=== PATIENT | male | born 1990 | race Caucasian/White ===

== ENCOUNTER 2021-08-23 12:27 | Emergency (ER) | payer OTHER, SELFPAY | END 2021-08-23 15:13 | disposition home or self-care (01) | LOC: ERS 12:27 | DX: S09.90XA Unspecified injury of head, initial encounter (principal); F17.210 Nicotine dependence, cigarettes, uncomplicated; V48.9XXA Unspecified car occupant injured in noncollision transport accident in traffic accident, initial encounter | CPT/HCPCS: 70450; G0390 ==

== ENCOUNTER 2022-10-16 14:39 | Emergency (ER) | payer OTHER ==
[2022-10-16] MEDS ORDERED: Diazepam 5 MG TAB ONE (16:09)
== END 2022-10-16 16:23 | disposition left against medical advice (07) ==
LOC: ERS 14:39
DX: F10.239 Alcohol dependence with withdrawal, unspecified (principal); R56.9 Unspecified convulsions; F17.290 Nicotine dependence, other tobacco product, uncomplicated